=== PATIENT | female | born 1960 | race Caucasian/White ===

== ENCOUNTER 2017-06-20 08:41 | Day surgery (SDC) | payer OTHER ==
[~2017-06-20] VITALS: Ht 154.9 cm; Wt 66.8 kg
[2017-06-20] MEDS ORDERED: [UNRECOGNIZED DRUG - REMARK] (10:35)
[2017-06-20 11:11] VITALS: BP 107/66; PULSE 83; RESP 16
--- NOTE | 2017-06-20 11:30 | OPPN ---
Date/Time of Note Date/Time of Note DATE: 06/20/17 TIME: 11:28 Proc Note GI Procedure Date 06/20/17 Indication: screening/surveillance Pre-procedure Diagnosis screening colonoscopy Post-procedure Diagnosis diverticulosis occ hemorrhoids Procedure Performed: Colonoscopy Surgeon see signature line Reliability Technicians none Anesthesia Type: moderate sedation Tourniquet Time none EBL none Transfusion required none Biopsy 1: none Grafts/Implants none Tubes/Drains none Complication(s) none Disposition: home Procedure Description under modsed colonoscopy performed occ diverticuli noted mod ex hemorrhoids noted next colonoscopy 10 yrs GARRISON KHALIL MD Jun 20, 2017 11:30
[2017-06-20] MEDS ORDERED: FENTAnyl 50 MCG/ML VIAL ONE (11:38)
[2017-06-20] MEDS ORDERED: MIDAZOLAM 1 MG/ML 2 ML INJ ONE ×2 (11:38)
[2017-06-20 11:52] VITALS: BP 101/63; RESP 20
--- NOTE | 2017-06-23 07:12 | GILP ---
DATE OF PROCEDURE: PROCEDURE: Screening colonoscopy to rule out colon polyps. POSTOPERATIVE DIAGNOSES: Occasional diverticula noted moderate degree of external hemorrhoids noted . No polyps seen. DESCRIPTION OF PROCEDURE: After informed written consent was obtained, the patient was asked to lie on the left lateral side, 4 mg Versed and 50 mcg of fentanyl was given as intravenous anesthesia. When the patient became somnolent, the Olympus video colonoscope was introduced into the rectum and advanced all the way to the cecum. Occasional diverticula noted in the right colon. Rest of the co brad appeared normal, no polyps, no carcinoma noted. On the way out, minimal external hemorrhoids we re noted and the procedure was terminated. PLAN: Recommend a colonoscopy in 10 years. Dictated By: GARRISON WILKERSON/SHAD Conf#: [id number] DID#: [id number]
== END 2017-06-20 14:20 | disposition home or self-care (01) ==
LOC: GIL 08:41
PROVIDERS: ATTEND Internal Medicine Gastroenterology
DX: Z12.11 Encounter for screening for malignant neoplasm of colon (principal); K64.4 Residual hemorrhoidal skin tags
CPT/HCPCS: 45378; J2250; J3010